=== PATIENT | female | born 1945 | race Caucasian/White ===

== ENCOUNTER 2017-05-10 01:47 | Observation (INO) | payer MEDICARE ==
[~2017-05-10] VITALS: Ht 160 cm; Wt 86.9 kg
[2017-05-10 01:50] VITALS: BP 141/73; PULSE 73; RESP 20; O2SAT 97
--- NOTE | 2017-05-10 02:46 | ED.REPORT ---
HPI-Head Prob / Injury Date of Service May 10, 2017 ED Provider: Alton Phillips MD The pt is a 71 y/o female on Aspirin and Plavix and with no pertinent hx who presents to the ED complaining of multiple lacerations on the face after she fell off her bed and hit her head on the night stand just prior to arrival.She has a laceration on her forehead and on her upper lip. She denies losing consciousness, headache and malocclusion. She took an Aspirin tonight. Nursing Notes Stated Complaint: FALL,HEAD INJURY Chief Complaint: Head, Face, Neck Trauma Nursing Notes Reviewed: Yes Allergies: Coded Allergies: Penicillins (Verified Allergy, Unknown, hives, 05/10/17) Sulfa (Sulfonamide Antibiotics) (Verified Allergy, Unknown, hives, 05/10/17) General Time Seen by Provider: 02:45 Chief Complaint Laceration Hx Obtained From: Patient Arrived By: Walk-in Onset Occurred: Just prior to arrival Symptom Duration: Since onset Caused by: Fall out of bed Severity: Current: No pain currently Severity: Maximum: No pain Recent Healthcare: No recent doctor visit Similar Sx Previous: No Past Medical History Past Medical History none reported Past Surgical History none reported Smoking History Unknown if Ever Smoker Social History Other Social History: Good social support Ambulatory Status Independent Review of Systems Reports: laceration on the forehead and on the upper lip. Denies: malocclusion Neurologic: Denies: Change LOC, Headache Complete sys rev & neg: except as marked. Physical Exam Initial Vital Signs Vital Signs (First) Date Time Temp Pulse Resp B/P Pulse Ox O2 Delivery O2 Flow Rate FiO2 05/10/17 01:50 36.0 73 20 141/73 97 Room Air Initial VS: Reviewed Respiratory: Breath sounds normal, Clear to auscultation, No respiratory distress Cardiovascular: Regular rate & rhythm, Heart sounds normal, Intact distal pulses Abdomen / GI: Soft, Non-tender Extremities: Vascular intact, Neuro intact, No swelling, No tenderness Skin: Warm, Dry, No cyanosis General/Constitutional: Awake, Alert, Cooperative Head / Eyes: Normocephalic Periorbital hematoma. 2cm laceration on the forehead 1.5cm laceration on the corner of the right eye ENT: Airway patent, Pharynx NL, Gums/dentition NL Clotted blood in both nares. 2cm laceration on the vermilion border of the upper lip. Normal dentition. Neck: Atraumatic, Supple, Full range of motion Neurologic: Oriented X3, Speech NL, No motor deficits, No sensory deficits Interpretation & Diagnostics CT maxillofacial Conclusion: No evidence of fracture. Signed by Dr. Brien Ontiveros 05/10/17 03:38 CT Head Interpretation Questionable trace parafalcine acute subdural hematoma. Signed by Dr. Brien Ontiveros 05/10/17 03:25 Study: Head CT no contrast Interpretation / Wet Read by: Interpret - Radiologist Procedures Laceration Management Laceration Management: Simple 4-0 vicryl sutures in the muscosal part of the upper lip with lots of fibrous material. Vermilion border had to be approximated with 2 horizontal mattress sutures with 6-0 nylon. 2cm lacteration on the forehead extended down to the galea, which was intact. Dirt debridement removed. Laceration sutured with simple 5-0 nylon sutures. 1.5cm laceration on the corner of her right eye. No debridement. Laceration sutured with 2 horizontal mattress 5-0 nylon sutures. Time: 04:35 Procedure Performed by: ED physician Consent / Setup / Site Prep: Consent from patient, Time-out performed, Hand hygiene observed, Stand sterile technique Location of Wound: Forehead and vermilion border of upper lip, both 2cm lacerations 1.5 cm laceration on the corner of the right eye. Local Anesthesia: Lidocaine 1% Digital Block: No Wound Preparation: Normal saline Debridement: None Irrigation: Copious Foreign Body Explore / Removal: Complete removal (dirt from the forehead laceration) Repair Skin: Nylon Post-Procedure / Complications: Antibiotic oint applied, Dressing applied, No complications, Condition improved, Tolerated procedure well, Patient stable Re-Eval/Medical Decision Med Decision/Clinical Course Wounds repaired as detailed above. Complex through and through laceration of lip with debridement of foreign material. Linear laceration of forehead. Linear laceration of upper eyelid. Radiology overnight interprets the CT scan as having a questionable small subdural on the anterior falx. Patient is on Plavix and aspirin. Admitted now for repeat CT scan in eight hours. I think the finding is questionable enough not to merit immediate transfer to [facility], as she will just be observed there repeat CT obtained and will be discharged. Source of Hx: Old records Re-Evaluation/Progress : Time of Eval: 05:00 Re-Evaluation/Progress Note: Rechecked pt. Discussed lab results, imaging results,diagnosis and plan to admit. Pt understands and agrees with the plan for admission. All questions addressed. Consultation : Referral / Consult Name: Grisel Sánchez DO Consulted With: Hospitalist Call Returned at: 06:01 Financial Report Service Sales Agent: Will see patient, Agrees with eval, Agrees with plan, Accepts admit Counseled Regarding: Diagnosis, Lab results, Need for follow-up, When/why to return to ED Discharge & Departure Primary Impression: Blunt head injury Additional Impressions: Facial laceration Encounter type: initial encounter Qualified Code: S01.81XA - Laceration without foreign body of other part of head, initial encounter Laceration of vermilion border of upper lip Encounter type: initial encounter Qualified Code: S01.511A - Laceration without foreign body of lip, initial encounter Laceration of forehead Encounter type: initial encounter Qualified Code: S01.81XA - Laceration without foreign body of other part of head, initial encounter Disposition: ADMITTED TO HOSPITAL All VS Reviewed: Yes Condition: Stable Referrals: [facility] Scribe Attestation Portions of this note were transcribed by Jeanine Ward. I,, personally performed the history, physical exam and medical decision-making;I reviewed and confirmed the accuracy of the information in the transcribed note. Signed by Mariah Davies. 05/10/17 Alton Phillips MD May 10, 2017 02:46 Jeanine Ward May 10, 2017 04:49
[2017-05-10] MEDS ORDERED: Ondansetron 2 mg/mL 2 mL Inj IVPUSH PRN ×2 (06:25→07:20)
[2017-05-10 06:41] VITALS: BP 125/58; PULSE 66; RESP 20; O2SAT 97
[2017-05-10 06:55] VITALS: BP 129/77; PULSE 71; RESP 18; O2SAT 97
--- NOTE | 2017-05-10 07:17 | NUR ---
Admit Patient arrived to floor from ED at 0650. Patient A&OX3. Patient has multiple face lacerations. Dr. De Leon stated that patient does not need IV access and that patient will repeat CT. Vitals stable. No IV access. Report given by Aylin FARIAS.
[2017-05-10] MEDS ORDERED: Polyethylene Glycol (PEG) 17 Gm Powder PO PRN (07:20)
[2017-05-10] MEDS ORDERED: Alum-Mag Hydrox-Simeth 30 mL Suspension PO PRN (07:20)
[2017-05-10] MEDS ORDERED: oxyCODONE-Acetamin 5-325 mg Tablet PO PRN ×2 (07:20→12:37)
--- NOTE | 2017-05-10 07:39 | PCM.HPMED ---
Subjective Date of Service May 10, 2017 Primary Provider: Admitting Physician: Grisel Sánchez DO Primary Care Physician: Govind Attending Physician: Grisel Sánchez DO Admit Status: From the Emergency Department, 23-Hour Observation Chief Complaint: fell from bed and sustained facial trauma/20 minutes prior to arrival History of Present Illness: 71-year-old lady with past medical history of diabetes, Parkinson's disease, HLD and emergency room due to fall from bed and facial trauma , She states she was having a bad dream and fell out of bed . She hit a table next to her bed and sustained facial trauma. She had bleeding from multiple facial lacerations. Her helped her get up and brought her to emergency room. No loss of consciousness. No motor weakness or numbness. Sustained multiple facial lacerations and scalp . No injury to other sites. Patient takes aspirin 81 mg daily for primary stroke prophylaxis. She does not take Plavix or any other blood thinner She states she has bad dreams since she was started on carbidopa levodopa 10 years ago for Parkinson's. Denies chest pain. ED course: 2cm laceration on the forehead extended down to the galea stitched, 1.5cm laceration on the corner of her right eye stitched,Forehead and vermilion border of upper lip, both 2cm lacerations 1.5 cm laceration on the corner of the right eye stitched. CT brain and face done : No fracture.Questionable trace parafalcine acute subdural hematoma. Admitted for observation and repeat CT scan Review of Systems: Comprehensive review of systems performed, pertinent positives and negatives included in history of present illness Allergies Coded Allergies: Penicillins (Verified Allergy, Unknown, hives, 05/10/17) Sulfa (Sulfonamide Antibiotics) (Verified Allergy, Unknown, hives, 05/10/17) Home Medications Aspirin 81 mg by mouth daily Carbidopa/levodopa Metformin lovaza Paroxetine Medication doses unknown PMH Parkinson's disease diagnosed 10 years ago Diabetes HLD Surgical History Tonsillectomy Hysterectomy Appendectomy Family History Unremarkable Social History Hx Alcohol Use: No Hx Substance Use: No Smoking Status: Unknown if Ever Smoker Exam Vital Signs Vital Sign - Last Date Time Temp Pulse Resp B/P Pulse Ox O2 Delivery O2 Flow Rate FiO2 05/10/17 06:55 36.7 71 18 129/77 97 Room Air Exam Gen. patient is lying comfortably in hospital bed HEENT 2cm laceration on the forehead extended down to the galea stitched,1.5cm laceration on the corner of her right eye stitched,Forehead and vermilion border of upper lip, both 2cm lacerations 1.5 cm laceration on the corner of the right eye stitched. Lungs clear to auscultation bilaterally Heart regular rate and rhythm without murmurs gallops or rubs Abdomen soft nontender without hepatosplenomegaly Extremities pulses are present dorsalis pedis posterior tibialis and radial. tSkin is warm and dry there are no rashes, Psych alert and oriented to person place and time Neuro cranial nerves II through XII are grossly intact. No sensory or motor deficits Lymph: There is no lymphadenopathy appreciated in the cervical supra infraclavicular regions : no daniels Assessment & Plan 71-year-old lady with past medical history of diabetes, Parkinson's disease, HLD and emergency room due to fall from bed and facial trauma , # Multiple facial and scalp laceration,acute ,poa -Lacerations stitched, antibiotic ointment applied -Lacerations involve buccal mucosa and lips borders . Foreign bodies removed per ED note . Lacerations are extensive and multiple. Patient also has diabetes. I will start her prophylactic antibiotics -Wound Care clinic outpt -Pain control with Percocet -hold aspirin # Suspected small SDH -no neuro deficit -await official CT read -Repeat CT scan 12h from initial one # Parkinsons disease, stable # Diabetes, stable Observation status full code Disposition: Discharge later after repeat CT scan Chrits De Leon MD May 10, 2017 07:39
[2017-05-10 07:48] VITALS: PULSE 68
[2017-05-10 07:59] LABS: BASOPHILS % (AUTO) 0.3 % (0-3); EOSINOPHILS % (AUTO) 2.5 % (0-5); MONOCYTES % (AUTO) 7.3 % (4-12); Mean Corpuscular Hemoglobin 31.1 pg (27.0-35.0); Mean Corpuscular Volume 95.4 fL (81-100); NEUTROPHILS % (AUTO) 68.3 % (40-74); Platelet Count 223 bil/L (150-400)
[2017-05-10 08:27] LABS: Magnesium 1.8 mg/dL (1.6-2.6)
[2017-05-10 08:41] VITALS: BP 128/73; PULSE 71; RESP 18; O2SAT 98
--- NOTE | 2017-05-10 09:25 | DRSVH ---
PROCEDURE: CT FACE WITHOUT CONTRAST ([id number]) INDICATIONS: fall, lacs TECHNIQUE: Noncontrast 1.5 mm thick axial images acquired from the mandible through the frontal sinuses, with co magdy and sagittal reformatting. For radiation dose reduction, the following was used: automated ex posure control. COMPARISON: None. FINDINGS: Image quality: Excellent. Bones and teeth: Orbital sharpe are intact. Sinus sharpe show no fracture or deformity. Nasal bones and septum are intact. Visualized portions of the mandible demonstrate no fractures or subluxation. Zygomatic arches are intact. Pterygoid plates are intact. Visualized portions of the skull base an d auditory canals are intact. Sinuses: There is mild bilateral maxillary sinus mucosal thickening. Paranasal sinuses are otherwise aerated, without fluid levels, mucosal thickening, or mucoceles. Mastoid air cells are aerated. Soft tissues: Subcutaneous emphysema and soft tissue thickening overlies the right nasal bone and fr ontal bone. Trace punctate radiopacities are present within the dermis. There is mild right pre-orbit al soft tissue swelling.No enlarged lymph nodes. Vascular: Visualized vascular structures appear normal in the absence of contrast. Bony vascular fo ramina and canals are intact. IMPRESSION: 1. Subcutaneous emphysema and soft tissue thickening over the right nasal bones and frontal bone with out underlying bony abnormality. Note: The preliminary [facility] interpretation and the final report are concordant. Dictated by: Toyin Middleton M.D. on 05/10/2017 at 9:21 Approved by: Toyin Middleton M.D. on 05/10/2017 at 9:24
--- NOTE | 2017-05-10 09:28 | DRSVH ---
PROCEDURE: CT BRAIN WITHOUT CONTRAST ([id number]) INDICATIONS: fall, lacs TECHNIQUE: Noncontrast 4.5 mm thick angled axial sections acquired from the foramen magnum to the vertex, with c oronal reformats. COMPARISON: None. FINDINGS: Image quality: Excellent. CSF spaces: Basal cisterns are patent. No extra-axial fluid collections. The ventricles are symmet claire in size and shape. Brain: No int definite intracranial bleed or masses. Increased radiopacity is present along the post erior aspect of the falx cerebri. There is cerebral volume loss for age, with resultant ventricular a nd sulcal prominence. There are periventricular and deep white matter chronic small vessel ischemic changes. There is intracranial internal carotid artery atherosclerosis. Skull and face: Mild soft tissue swelling and subcutaneous emphysema overlies the right nasal bone a nd frontal bone. Calvarium and visualized facial bones appear intact, without suspicious lesions. Sinuses: Visualized sinuses and mastoids are clear. IMPRESSION: 1. Subtle, increased radiopacity along the posterior aspect of the falx cerebri. Parafalcine subdural hematoma cannot be excluded. Consider repeat study in 4 hours. No other findings to suggest intracra nial hemorrhage or other acute intracranial process. 2. Facial soft tissue swelling without underlying bony abnormality. Dictated by: Toyin Middleton M.D. on 05/10/2017 at 9:24 Approved by: Toyin Middleton M.D. on 05/10/2017 at 9:27
[2017-05-10 10:04] LABS: APPEARANCE,URINE CLEAR (CLEAR,HAZY); COLOR,URINE YELLOW (YELLOW); OCCULT BLOOD,URINE NEGATIVE (NEGATIVE); PH,URINE 5.5 (5.0-8.0); UROBILINOGEN,URINE NORMAL (NORMAL)
--- NOTE | 2017-05-10 10:05 | NUR ---
Med rec Pt unsure of medications and doses. Admit RN paged to assist with admit and med rec.
--- NOTE | 2017-05-10 10:10 | NUR ---
Social Work- Initial Assessment/ Readiness for D/C Data: See Initial Assessment for additional information. Pt is a 71 year old female admitted 05/10 under observation status for blunt head injury per H&P. Pt's insurance is [employer]. Pt's PCP is MD [place] at [facility]. Pt's readmit risk score is not listed at this time. Pt discussed in multidisciplinary rounds, pt to d/c later today after repeat CT. SW met with pt at bedside regarding d/c plan, SW role explained. Pt resides at home in [place] with her . Pt is independent at baseline with ADLs and self-care. Pt has no HH, SNF, LTC, or VA. Pt declined DPOA information. Pt provided with d/c planning checklist and instructed to contact [employer] with identified needs. Pt to d/c home with to transport via POV. No d/c needs identified. Assessment: Pt who is independent at baseline. Plan: Pt to d/c home with to transport via POV. No d/c needs identified. SW continues to follow. ANGELITO Quesada Addendum: 05/10/17 at 1013 by CHERIE JOHNSON Amended: Links added.
[2017-05-10] MEDS ORDERED: ROTI1PAT12 TOPICAL (10:11)
[2017-05-10] MEDS ORDERED: PARO20TA5 PO (10:11)
[2017-05-10] MEDS ORDERED: CARB-132 PO (10:11)
[2017-05-10] MEDS ORDERED: METF850T2 PO (10:11)
[2017-05-10] MEDS ORDERED: SIMV20TA4 PO (10:11)
[2017-05-10] MEDS ORDERED: OMEG-109 PO (10:11)
[2017-05-10] MEDS ORDERED: LUTE20CA13 PO (10:16)
[2017-05-10] MEDS ORDERED: ASCO-294 PO (10:16)
[2017-05-10] MEDS ORDERED: BIOT1000 PO (10:16)
[2017-05-10] MEDS ORDERED: CHOL5000 PO (10:16)
[2017-05-10] MEDS ORDERED: MAGN500C4 PO (10:16)
--- NOTE | 2017-05-10 10:36 | NUR ---
Case Management- GENTILE explained and signed/timed at 1025. Copy given to patient. Orginal placed in chart. Dorina NORIEGA/DINORA
--- NOTE | 2017-05-10 12:01 | NUR ---
Off unit To CT at this time via wheelchair. computed tomography technologist informed.
--- NOTE | 2017-05-10 12:13 | DRSVH ---
PROCEDURE: CT BRAIN WITHOUT CONTRAST ([id number]) INDICATIONS: follow up poss subdural anterior falx TECHNIQUE: Noncontrast 4.5 mm thick angled axial sections acquired from the foramen magnum to the vertex, with c oronal reformats. COMPARISON: [facility], CT, CT BRAIN WO CON, 05/10/2017, 3:01. FINDINGS: Image quality: Excellent. CSF spaces: Basal cisterns are patent. No extra-axial fluid collections. The ventricles are symmet claire in size and shape. Brain: No intracranial bleeds or masses. There is cerebral volume loss for age, with resultant vent ricular and sulcal prominence. There are periventricular and deep white matter chronic small vessel ischemic changes. There is intracranial internal carotid artery atherosclerosis. Skull and face: There is mild frontal soft tissue swelling. Calvarium and visualized facial bones ap pear intact, without suspicious lesions. Sinuses: Visualized sinuses and mastoids are clear. IMPRESSION: 1. No acute intracranial findings. Specifically, no findings to suggest posterior parafalcine subdura l hematoma. 2. Mild findings likely associated with microvascular ischemia. Dictated by: Toyin Middleton M.D. on 05/10/2017 at 12:09 Approved by: Toyin Middleton M.D. on 05/10/2017 at 12:11
[2017-05-10] MEDS ORDERED: Albumin 25% 50 GM in IV Premix 1 EACH IV ONE (12:25)
--- NOTE | 2017-05-10 12:38 | PCM.DIMED ---
Discharge Instructions Date of Service May 10, 2017 Dates of Hospitalization May 10, 2017 at 06:23 Discharge Diagnosis Discharge Diagnosis # Multiple facial lacerations due to fall from bed,acute ,poa #Initially Suspected small SDH but ruled out # Parkinsons disease, stable # Diabetes, stable Diet Discharge Diet: Heart Healthy, Diabetic Activity Discharge Activity: Limited until seen by PCP Call your provider Call your provider for: Fever or Chills, Shortness of breath, Bleeding, Chest pain, Vomitting, Excessive diarrhea, Weakness (unilateral) Patient Instructions Patient Instructions You were hospitalized to due to facial lacerations secondary to fall from bed. Facial lacerations stitched in emergency room. Please come back on Tuesday for stitch removal to emergency room. Please take Keflex antibiotic prophylaxis given laceration involves lip/buccal mucosa. Please take Percocet for pain. Please follow-up with PCP in 1 week.please try to avoid sleep aids as they may cause bad dreams. Follow-up with PCP in: 1 week (Dr Benjamin Kirkland ) Christ De Leon MD May 10, 2017 12:38
[2017-05-10 12:39] VITALS: BP 123/73; PULSE 71; RESP 18; O2SAT 95
[2017-05-10] MEDS ORDERED: OXYC1TAB24 PO (12:39)
[2017-05-10] MEDS ORDERED: CEPH500C PO (12:39)
--- NOTE | 2017-05-10 12:48 | PCM.DC.MED ---
Discharge Summary Date of Service May 10, 2017 Dates of Hospitalization Date of Hospital Admission May 10, 2017 at 06:23 Date of Discharge: May 10, 2017 Providers: Admitting Physician: Grisel Sánchez DO Primary Care Physician: Govind Attending Physician: Grisel Sánchez DO Diagnosis at Time of Discharge Diagnosis at Time of Discharge # Multiple facial lacerations due to fall from bed,acute ,poa #Initially Suspected small SDH but ruled out # Parkinsons disease, stable # Diabetes, stable Procedures ECG 12 Lead PROCEDURE: CT BRAIN WITHOUT CONTRAST ([id number]) INDICATIONS: fall, lacs IMPRESSION: 1. Subtle, increased radiopacity along the posterior aspect of the falx cerebri. Parafalcine subdural hematoma cannot be excluded. Consider repeat study in 4 hours. No other findings to suggest intracranial hemorrhage or other acute intracranial process. 2. Facial soft tissue swelling without underlying bony abnormality. Dictated by: Toyin Middleton M.D. on 05/10/2017 at 9:24 PROCEDURE: CT FACE WITHOUT CONTRAST ([id number]) INDICATIONS: fall, lacs IMPRESSION: 1. Subcutaneous emphysema and soft tissue thickening over the right nasal bones and frontal bone without underlying bony abnormality. Note: The preliminary [facility] interpretation and the final report are concordant. Dictated by: Toyin Middleton M.D. on 05/10/2017 at 9:21 PROCEDURE: CT BRAIN WITHOUT CONTRAST ([id number]) INDICATIONS: follow up poss subdural anterior falx IMPRESSION: 1. No acute intracranial findings. Specifically, no findings to suggest posterior parafalcine subdural hematoma. 2. Mild findings likely associated with microvascular ischemia. Dictated by: Toyin Middleton M.D. on 05/10/2017 at 12:09 Brief History 71-year-old lady with past medical history of diabetes, Parkinson's disease, HLD and emergency room due to fall from bed and facial trauma , She states she was having a bad dream and fell out of bed . She hit a table next to her bed and sustained facial trauma. She had bleeding from multiple facial lacerations. Her helped her get up and brought her to emergency room. No loss of consciousness. No motor weakness or numbness. Sustained multiple facial lacerations and scalp . No injury to other sites. Patient takes aspirin 81 mg daily for primary stroke prophylaxis. She does not take Plavix or any other blood thinner She states she has bad dreams since she was started on carbidopa levodopa 10 years ago for Parkinson's. Denies chest pain. ED course: 2cm laceration on the forehead extended down to the galea stitched, 1.5cm laceration on the corner of her right eye stitched,Forehead and vermilion border of upper lip, both 2cm lacerations 1.5 cm laceration on the corner of the right eye stitched. CT brain and face done : No fracture.Questionable trace parafalcine acute subdural hematoma. Admitted for observation and repeat CT scan Hospital Course 71-year-old lady with past medical history of diabetes, Parkinson's disease, HLD and emergency room due to fall from bed and facial trauma , # Multiple facial lacerations,acute ,poa -Lacerations stitched, antibiotic ointment applied. Advised to come to ED for stitch removal on Tuesday. -Lacerations involve buccal mucosa and lips borders . Foreign bodies removed per ED note . Lacerations are extensive and multiple. Patient also has diabetes. I will start her prophylactic antibiotics. Keflex for 5 days -Pain control with Percocet -Okay to resume aspirin tomorrow # Initially suspected Suspected small SDH, ruled out -no neuro deficit -Repeat CT scan ruled out subdural hematoma # Parkinsons disease, stable # Diabetes, stable Observation status Disposition: Discharge home Exam Vital Signs (Last) Date Time Temp Pulse Resp B/P Pulse Ox O2 Delivery O2 Flow Rate FiO2 05/10/17 12:39 36.7 71 18 123/73 95 Room Air Exam Gen. patient is lying comfortably in hospital bed HEENT 2cm laceration on the forehead extended down to the galea stitched,1.5cm laceration on the corner of her right eye stitched,Forehead and vermilion border of upper lip, both 2cm lacerations 1.5 cm laceration on the corner of the right eye stitched. Lungs clear to auscultation bilaterally Heart regular rate and rhythm without murmurs gallops or rubs Abdomen soft nontender without hepatosplenomegaly Extremities pulses are present dorsalis pedis posterior tibialis and radial. tSkin is warm and dry there are no rashes, Psych alert and oriented to person place and time Neuro cranial nerves II through XII are grossly intact. No sensory or motor deficits Lymph: There is no lymphadenopathy appreciated in the cervical supra infraclavicular regions : no daniels Test 05/10/17 07:50 05/10/17 08:46 White Blood Count 9.6th/mm3 (3.8-10.1) Red Blood Count 3.66mil/mm3 (3.90-5.20) Hemoglobin 11.4g/dL (12.0-15.6) Hematocrit 34.9% (35.0-46.0) Mean Corpuscular Volume 95.4fL (81-100) Mean Corpuscular Hemoglobin 31.1pg (27.0-35.0) Mean Corpuscular Hemoglobin Concent 32.7% (32.0-37.0) Red Cell Distribution Width 12.7% (12.3-15.4) Platelet Count 223bil/L (150-400) Neutrophils (%) (Auto) 68.3% (40-74) Lymphocytes (%) (Auto) 21.5% (14-46) Monocytes (%) (Auto) 7.3% (4-12) Eosinophils (%) (Auto) 2.5% (0-5) Basophils (%) (Auto) 0.3% (0-3) Sodium Level 142mEq/L (134-144) Potassium Level 4.3mEq/L (3.5-5.2) Chloride Level 106mEq/L (97-108) Carbon Dioxide Level 22mmol/L (18-29) Blood Urea Nitrogen 19mg/dL (8-27) Creatinine 0.58mg/dL (0.57-1.00) Estimat Glomerular Filtration Rate 148mL/min (>59) Glucose Level 105mg/dL (60-99) Calcium Level 8.9mg/dL (8.5-10.1) Magnesium Level 1.8mg/dL (1.6-2.6) Total Bilirubin 0.3mg/dL (0.0-1.2) Aspartate Amino Transf (AST/SGOT) 19U/L (0-50) Alanine Aminotransferase (ALT/SGPT) 23U/L (0-32) Alkaline Phosphatase 58U/L (25-165) Total Protein 5.8g/dL (6.4-8.4) Albumin 4.2g/dL (3.4-5.0) Hold [place] Top Tube Received (Received) Urine Color Yellow (YELLOW) Urine Appearance Clear (CLEAR,HAZY) Urine pH 5.5 (5.0-8.0) Urine Specific [place] 1.020 (1.003-1.035) Urine Protein Negativemg/dL (NEG,TRACE) Urine Glucose (UA) Negativemg/dL (NEGATIVE) Urine Ketones Negativemg/dL (NEGATIVE) Urine Occult Blood Negative (NEGATIVE) Urine Nitrite Negative (NEGATIVE) Urine Bilirubin Negative (NEGATIVE) Urine Urobilinogen Normalmg/dL (NORMAL) Urine Leukocyte Esterase Negative (NEGATIVE) Urine RBC 0-2/hpf (0-2) Urine WBC 0-5/hpf (0-5) Urine Epithelial Cells Occasional/hpf (NONE-MOD) Urine Crystals None seen (NONE SEEN) Urine Bacteria None/hpf (NONE-FEW) Urine Hyaline Casts None/lpf (NONE) Urine Granular Casts None seen (NONE SEEN) Urine Waxy Casts None seen (NONE SEEN) Urine Red Blood Cell Casts None seen (NONE SEEN) Urine White Blood Cell Casts None seen (NONE SEEN) Urine Mucus None seen (None Seen) Urine Trichomonas None seen (NONE SEEN) Urine Yeast None (NONE SEEN) Urinalysis Comment None Urine Culture Reflexed Not indicated Discharge Medications Discharge Medications Ascorbate Calcium (Vitamin C) 500 Mg Tablet 500 MG PO DAILY (Reported) Biotin (Konrad Biotin) 10,000 Mcg Capsule 10,000 MCG PO DAILY (Reported) Carbidopa/Levodopa/Enta 50-200-200 mg (Carbidopa/Levodopa/Enta 50-200-200 mg) 1 Each Tablet 1 TAB PO 3-4X daily (Reported) Cephalexin (Cephalexin) 500 Mg Capsule 500 MG PO TID Prescribed by: CHRIST DE LEON MD Cholecalciferol (Vitamin D3) (Vitamin D3) 5,000 Unit Capsule 5,000 UNIT PO DAILY (Reported) Lutein (Natural Lutein) 20 Mg Capsule 20 MG PO HS (Reported) Magnesium Oxide (Magnesium) 500 Mg Capsule 500 MG PO HS (Reported) Metformin (Metformin) 850 Mg Tablet 850 MG PO BID (Reported) Vance-3 Acid Ethyl Esters (Vance-3 Acid Ethyl Esters) 1 Gm Capsule 2 GM PO BID ( Reported) Paroxetine (Paroxetine) 20 Mg Tablet 20 MG PO HS (Reported) Rotigotine (Neupro) 1 Each Patch.td24 1 PATCH TOPICAL HS (Reported) Simvastatin (Simvastatin) 20 Mg Tablet 20 MG PO HS (Reported) As needed oxyCODONE-Acetaminophen 5-325 mg (oxyCODONE-Acetaminophen 5-325 mg) 1 Each Tablet 1 TAB PO Q4H PRN PRN For Pain Prescribed by: CHRIST DE LEON MD Followup Plan Disposition: home Discharge Diet: Heart Healthy, Diabetic Discharge Activity: Limited until seen by PCP Patient Instructions You were hospitalized to due to facial lacerations secondary to fall from bed. Facial lacerations stitched in emergency room. Please come back on Tuesday for stitch removal to emergency room. Please take Keflex antibiotic prophylaxis given laceration involves lip/buccal mucosa. Please take Percocet for pain. Please follow-up with PCP in 1 week.please try to avoid sleep aids as they may cause bad dreams. Follow-up with PCP in: 1 week (Dr Benjamin Kirkalnd ) Christ De Leon MD May 10, 2017 12:48
--- NOTE | 2017-05-10 13:13 | NUR ---
Social Work- Discharge Data: EMR reviewed. Pt is on day 1 of hospitalization. Pt to d/c today, discharge orders are active. Pt to d/c home with his spouse per H&P. No d/c needs. Assessment: Pt who is independent at baseline. Plan: Pt to d/c home with his spouse per H&P. No d/c needs. Jessica Franco MSW
--- NOTE | 2017-05-10 13:36 | NUR ---
Discharge To home with via private vehicle at 13:35. Steady transfer to wheelchair. Pt and express understanding of all discharge instructions and carenotes, including medications and followup. Rx given to . IV discontinued intact. All personal belongings sent with pt.
== END 2017-05-10 13:35 | disposition home or self-care (01) ==
LOC: SED 01:47 → OSC 06:23
PROVIDERS: ADMIT Internal Medicine; ATTEND Internal Medicine
DX: S01.81XA Laceration without foreign body of other part of head, initial encounter (principal); S01.111A Laceration without foreign body of right eyelid and periocular area, initial encounter; S01.511A Laceration without foreign body of lip, initial encounter; W06.XXXA Fall from bed, initial encounter; Y93.89 Activity, other specified; Y92.003 Bedroom of unspecified non-institutional (private) residence as the place of occurrence of the external cause; Y99.8 Other external cause status; Z79.82 Long term (current) use of aspirin; E11.9 Type 2 diabetes mellitus without complications; E78.5 Hyperlipidemia, unspecified; G20 Parkinson's disease; Z79.84 Long term (current) use of oral hypoglycemic drugs
CPT/HCPCS: 12014; 36415; 70450; 70486; 80053; 81000; 83735; 85025; 99285; G0378

== ENCOUNTER 2017-05-16 09:21 | Emergency (ER) | payer MEDICARE ==
[~2017-05-16 09:21] MED LIST: ASCO-294 PO; BIOT1000 PO; CARB-132 PO; CEPH500C PO; CHOL5000 PO; LUTE20CA13 PO; MAGN500C4 PO; METF850T2 PO; OMEG-109 PO; OXYC1TAB24 PO; PARO20TA5 PO; ROTI1PAT12 TOPICAL; SIMV20TA4 PO
[2017-05-16 09:23] VITALS: BP 132/76; PULSE 73; RESP 18; O2SAT 97
--- NOTE | 2017-05-16 09:40 | ED.REPORT ---
HPI-Recheck W/B/S Date of Service May 16, 2017 ED Provider: Leroy Craven DO Pt is a 71 y/o female w/ a hx of DM, presenting to the ED to have her sutures removed. The patient had multiple facial sutures placed on 05/10/17 after presenting to the ED due to a fall from bed. She was admitted for observation due to possible subdural hematoma which was ruled out. She denies any fever, chills, redness, discharge, pain, swelling. Nursing Notes Stated Complaint: SUTURE REMOVAL Chief Complaint: Wound Recheck/Suture Removal Nursing Notes Reviewed: Yes Allergies: Coded Allergies: Penicillins (Verified Allergy, Unknown, hives, 05/10/17) Sulfa (Sulfonamide Antibiotics) (Verified Allergy, Unknown, hives, 05/10/17) Scheduled Ascorbate Calcium (Vitamin C) 500 Mg Tablet 500 MG PO DAILY Biotin (Konrad Biotin) 10,000 Mcg Capsule 10,000 MCG PO DAILY Carbidopa/Levodopa/Enta 50-200-200 mg (Carbidopa/Levodopa/Enta 50-200-200 mg) 1 Each Tablet 1 TAB PO 3-4X daily Cephalexin (Cephalexin) 500 Mg Capsule 500 MG PO TID Cholecalciferol (Vitamin D3) (Vitamin D3) 5,000 Unit Capsule 5,000 UNIT PO DAILY Lutein (Natural Lutein) 20 Mg Capsule 20 MG PO HS Magnesium Oxide (Magnesium) 500 Mg Capsule 500 MG PO HS Metformin (Metformin) 850 Mg Tablet 850 MG PO BID Salado-3 Acid Ethyl Esters (Salado-3 Acid Ethyl Esters) 1 Gm Capsule 2 GM PO BID Paroxetine (Paroxetine) 20 Mg Tablet 20 MG PO HS Rotigotine (Neupro) 1 Each Patch.td24 1 PATCH TOPICAL HS Simvastatin (Simvastatin) 20 Mg Tablet 20 MG PO HS Scheduled PRN oxyCODONE-Acetaminophen 5-325 mg (oxyCODONE-Acetaminophen 5-325 mg) 1 Each Tablet 1 TAB PO Q4H PRN PRN For Pain General Time Seen by Provider: 09:40 Chief Complaint Suture removal Wound / Injury Type: Laceration Prior Tx of Wound / Injury: Sutured Hx Obtained From: Patient Arrived By: Walk-in Onset Occurred: 6 days ago Symptom Duration: Since onset Progression Since Onset: Constant Severity: Current: No pain currently Severity: Maximum: No pain Recent Healthcare: Recent doctor visit, Recent hospitalization Similar Sx Previous: No Past Medical History Past Medical History Parkinson's disease diagnosed 10 years ago Diabetes HLD Past Surgical History Tonsillectomy Hysterectomy Appendectomy Smoking History Unknown if Ever Smoker Social History Alcohol Use: Denies alcohol use Drug Use: Denies drug use Other Social History: Good social support Ambulatory Status Independent Review of Systems Constitutional: Denies: Chills, Fever Skin: Denies Itching, Denies Rash, Denies Swelling Complete sys rev & neg: except as marked. Physical Exam Initial Vital Signs Vital Signs (First) Date Time Temp Pulse Resp B/P Pulse Ox O2 Delivery O2 Flow Rate FiO2 05/16/17 09:23 36.6 73 18 132/76 97 Room Air Initial VS: Reviewed, Vital signs normal Neck: Supple, Full range of motion Respiratory: No respiratory distress Cardiovascular: Intact distal pulses Abdomen / GI: No distention Extremities: Vascular intact, Neuro intact Neurologic: Alert, Oriented, Nonfocal Psychiatric: Mood/affect normal, Behavior normal, Normal thought content Skin: Color NL, No rash, Warm, Dry, Intact General/Constitutional: Awake, Alert, No acute distress, Well appearing, Cooperative, Not toxic appearing Head / Eyes: Normocephalic, EOMI, No periorbital redness, No periorbital swelling Sutures in the forehead and eyelid, upper lip both outer and also inner mucosa Sutures were removed and the forehead was steri-stripped No signs of infection ENT: Airway patent, Mucous membranes moist, Pharynx NL, No pooling of secretions, No trismus Sutures placed on the mucousal portion of the upper lip and outer portion of lip I trimmed the tails of the vicryl sutures of the inner mucousa No signs of infection Procedures Suture Removal Trimmed tails of the vicryl sutures of the inner mucousa of the mouth and removed sutures of head, outer upper lip and eyelid Head wound steri-stripped Time: 09:47 Procedure Performed by: ED physician Wound Condition: Good healing, No sign of infection Number Removed: Removed sutures, All Re-Eval/Medical Decision Re-Evaluation/Progress : Time of Eval: 09:55 Re-Evaluation/Progress Note: F/U instructions and RTER warnings given. All questions addressed. Counseled Regarding: Diagnosis, Need for follow-up, When/why to return to ED Discharge & Departure Impression: Primary Impression: Encounter for removal of sutures Disposition: Home Discharge Condition All VS Reviewed: Yes Condition: Stable Patient Instructions: Acute Wound Care (GEN) Additional Instructions: Sutures were removed from your forehead, eyelid, and upper lip. Your sutures that were placed on the inner lip will dissolve over time. Your forehead was Steri-Stripped. These will slowly fall off over time. Apply high SPF sunscreen to your face over the next year to prevent scarring and discoloration. Return to the ER or follow up with your doctor as needed for signs of infection , or other concerns. Referrals: NOPCP (PCP) Scribe Attestation Portions of this note were transcribed by Hany Richter. I, Dr. Craven, personally performed the history, physical exam and medical decision-making; I reviewed and confirmed the accuracy of the information in the transcribed note. Leroy Craven DO May 16, 2017 09:40 HANY RICHTER May 16, 2017 09:53
== END 2017-05-16 10:00 | disposition home or self-care (01) ==
LOC: SED 09:21
DX: Z48.02 Encounter for removal of sutures (principal); E11.9 Type 2 diabetes mellitus without complications; Z88.0 Allergy status to penicillin; Z88.2 Allergy status to sulfonamides; Z79.84 Long term (current) use of oral hypoglycemic drugs